=== PATIENT | male | born 1935 | race Caucasian/White ===

== ENCOUNTER 2018-01-22 09:01 | Emergency (ER) | payer MEDICARE ==
--- NOTE | 2018-01-22 10:43 | RAD ---
INDICATION: Short of breath. Pulmonary fibrosis COMPARISON: August 30, 2015 TECHNIQUE: PA and lateral dual-energy views were obtained. FINDINGS: Bones/Soft Tissues: There are no acute bony findings. Cardiomediastinal: The cardiomediastinal silhouette is normal. Lungs: There are no infiltrates. There is mild basilar interstitial change Pleura: There are no pleural effusions. Other: None IMPRESSION: MILD BASILAR INTERSTITIAL CHANGE. NO ACUTE FINDINGS.
[2018-01-22 11:26] VITALS: BP 106/62
--- NOTE | 2018-01-22 12:49 | UC ---
Trista Duckworth Tenzin, scribed for Zaki Lovelace MD on 01/22/18 at 0932 . Respiratory Complaint HPI - HPI Summary HPI Summary: Pt is a 82 years old male presenting to the complaining of stomach problem and SOB since 6-7 weeks ago that has gradually been getting worse. He is also complaining of fatigue, loss of appetite, sleeping a lot and loss of weight and chills describes as wearing winter jackets yesterday". Denies fever, swelling in ankles, sore throat, runny nose. No aggravating and alleviating factors were noted. Pt reports that he was at [facility], had CAT scans done on his lungs and notes that he has an appointment set up with a [employer] P[employer] in february. - History of Current Complaint Chief Complaint: UCRespiratory Stated Complaint: RESP COMPLAINT Time Seen by Provider: 01/22/18 09:23 Hx Obtained From: Patient Pain Intensity: 0 - Allergies/Home Medications Allergies/Adverse Reactions: Allergies Allergy/AdvReac Type Severity Reaction Status Date / Time No Known Allergies Allergy Verified 01/22/18 09:15 Home Medications: Home Medications Atorvastatin* [Lipitor 40 MG*] 40 mg PO DAILY 01/22/18 [History Confirmed ] Torsemide 20 mg PO DAILY 01/22/18 [History Confirmed 01/22/18] PMH/Surg Hx/FS Hx/Imm Hx Endocrine History: Diabetes Cardiovascular History: Atrial Fibrillation, Other - Moderate Aortic stenosis. Other Cardiovascular History: . Respiratory History: Other - Pulmonary Fibrosis. Other Respiratory History: . - Surgical History Surgical History: Yes Surgery Procedure, Year, and Place: 2007 LEFT HIP REPLACEMENT (DONE 3 TIMES) [facility]. 2002 RIGHT KNEE REPLACEMENT, [facility]. 2010 COLON POLYPS-REMOVED 13 INCHES OF COLON, [facility] - Family History Known Family History: Positive: Hypertension - Social History Alcohol Use: Occasionally Alcohol Amount: drinks beer approx. 3x/week Substance Use Type: None Smoking Status (MU): Never Smoked Tobacco Have You Smoked in the Last Year: No - Immunization History Most Recent Influenza Vaccination: this season Most Recent Tetanus Shot: pt unsure Most Recent Pneumonia Vaccination: up to date Review of Systems Constitutional: Chills, Fatigue Skin: Negative Eyes: Negative ENT: Negative Respiratory: Shortness Of Breath Cardiovascular: Negative Gastrointestinal: Abdominal Pain Genitourinary: Negative Motor: Negative Neurovascular: Negative Musculoskeletal: Negative Neurological: Negative Psychological: Negative All Other Systems Reviewed And Are Negative: Yes - Comments Additional Review of Systems Comments: POSITIVE: SOB, Stomach problem,chills, loss of appetite NEGATIVE: fever, sore throat, runny nose, swelling in ankles. Physical Exam - Summary Physical Exam Summary: General: well-appearing, no pain distress Skin: warm, color reflects adequate perfusion, dry Head: normal Eyes: EOMI, AMADOR ENT: normal Neck: supple, nontender Respiratory: CTA, breath sounds present Cardiovascular: RRR Abdomen: soft, nontender Bowel: present Musculoskeletal: normal, strength/ROM intact Neurological: sensory/motor intact, A&O x3 Psychological: affect/mood appropriate Triage Information Reviewed: Yes Vital Signs: Initial Vital Signs Temp 98.3 F 01/22/18 09:16 Pulse 79 01/22/18 09:16 Resp 20 01/22/18 09:16 BP 109/57 01/22/18 09:16 Pulse Ox 96 01/22/18 09:16 Vital Signs Reviewed: Yes UC Diagnostic Evaluation - Laboratory O2 Sat by Pulse Oximetry: 96 - Radiology Radiology Interpretation Completed By: Radiologist - CHEST X RAY:Mild Basilar Interstitial change. No acute Findings. - EKG Cardiac Rate: NL - 71 BPM done at 10:01 Cardiac Rhythm: AFib: Old - A-Fib Respiratory Course/Dx - Course Course Of Treatment: DISCUSSED WITH DR POWERS. THE PATIENT IS SCHEDULED TO SEE PULMONOLOGY IN FEBRUARY WITH [facility]. HAS MODERATE AORTIC CALCIFIC STENOSIS WITH A NORMAL EF. DISCUSSED TREATMENT WITH A SHORT COURSE STEROID AND F/U WITH PMD/ PULMONARY AND RECHECK SOONER IF WORSE. - Differential Dx/Diagnosis Provider Diagnoses: DYSPNEA. PULMONARY FIBROSIS - Physician Notification/Consults Time Discussed With Above Provider: 09:35 - Consulted with his PCP Dr. Singh from [facility] regarding the pt's lung CAT scans report. Discharge - Sign-Out/Discharge Documenting (check all that apply): Discharge/Admit/Transfer - Discharge Plan Condition: Stable Disposition: HOME Patient Education Materials: Pulmonary Fibrosis (ED), Shortness of Breath (ED) Referrals: Alexandra Moon MD [Primary Care Provider] - Additional Instructions: FOLLOW UP WITH YOUR PRIMARY CARE DOCTOR AND SQUARE CUTTER. GET RECHECKED FOR ANY WORSENING OF YOUR CONDITION; CHEST PAIN, SHORTNESS OF BREATH, FEVER, YOU FEEL ILL OR QUESTIONS OR CONCERNS. - Billing Disposition and Condition Condition: STABLE Disposition: Home The documentation as recorded by the Trista tony Tenzin accurately reflects the service I personally performed and the decisions made by me, Zaki Lovelace MD.
[2018-01-22 15:51] LABS: ABS Basophils 0.1 10^3/ul (0-0.2); ABS Eosinophils 0.1 10^3/ul (0-0.6); ABS Lymphocytes 0.6 10^3/ul (1.0-4.8); ABS Monocytes 0.5 10^3/ul (0-0.8); ABS Neutrophils 4.6 10^3/ul (1.5-7.7); ABS Nucleated RBC 0 10^3/ul; Eosinophil % 0.9 % (0-6); Hematocrit 42 % (42-52); Hemoglobin 14.3 g/dl (14.0-18.0); Lymphocyte % 9.5 % (25-47); Mean Corpuscular HGB Conc 34 g/dl (31-36); Mean Corpuscular Hemoglobin 31 pg (27-31); Mean Corpuscular Volume 93 fL (80-94); Mean Platelet Volume 8.7 um3 (7.4-10.4); Nucleated Red Blood Cells % 0.2; Platelet Count 233 10^3/ul (150-450); Red Blood Count 4.55 10^6/ul (4.00-5.40); Red Cell Distribution Width 15 % (10.5-15); White Blood Count 5.8 10^3/ul (3.5-10.8)
[2018-01-22 17:01] LABS: EGFR Non-African American 55.4 (>60)
== END 2018-01-22 11:28 | disposition home or self-care (01) ==
LOC: UCEAST 09:01
DX: J84.10 Pulmonary fibrosis, unspecified (principal); R06.00 Dyspnea, unspecified; R10.9 Unspecified abdominal pain; E11.9 Type 2 diabetes mellitus without complications; Z96.642 Presence of left artificial hip joint; Z96.651 Presence of right artificial knee joint
CPT/HCPCS: 36415; 71046; 80053; 83735; 83880; 85025; 93005; 99212; G0463